=== PATIENT | female | born 1960 | race Hispanic/Latino ===

== ENCOUNTER 2018-12-20 13:12 | Outpatient (CLI) | payer OTHER ==
--- NOTE | 2018-12-20 14:15 | RAD ---
RADIOGRAPH LUMBAR SPINE 4 VIEWS: DATE: 12/20/18 HISTORY: 58-year-old female with chronic low back pain. TECHNIQUE: AP and 3 lateral views in flexion, extension, and neutral. FINDINGS: Five lumbar-type vertebrae. Vertebral body heights are maintained. Mild disc space narrowing at l4-5, perhaps slightly worse than on 10/06/16. No other interval change since then. Grade I anterolisthesi s of L4 on L5. Bilateral pedicle screws at L5 and S1. Metallic markers for interbody graft at the mod erately narrowed L5-S1 disc space. No instability between flexion and extension. Laminectomy defects at L4-5 and L5-S1. IMPRESSION: 1. Grade I spondylolisthesis at L3-4 without evidence of instability. 2. Status post laminectomy and posterior lumbar interbody fusion at L5-S1. 3. Degenerative disc disease at L4-5 and L5-S1. JN [] POS: CET
== END 2018-12-20 13:13 | disposition home or self-care (01) ==
LOC: RAD 13:12
PROVIDERS: ATTEND Nurse Practitioner Family
DX: M67.911 Unspecified disorder of synovium and tendon, right shoulder (principal); M43.16 Spondylolisthesis, lumbar region; M51.36 Other intervertebral disc degeneration, lumbar region; M51.37 Other intervertebral disc degeneration, lumbosacral region; Z98.890 Other specified postprocedural states; Z98.1 Arthrodesis status
CPT/HCPCS: 72120

== ENCOUNTER 2020-05-27 09:23 | Outpatient (CLI) | payer OTHER ==
--- NOTE | 2020-05-27 09:43 | RAD ---
LUMBAR SPINE 3 VIEWS: Date: 05/27/2020 HISTORY: Lumbar radicular pain, bilateral leg pain, prior surgery. COMPARISON: 12/20/2018. FINDINGS: Stable postoperative changes at L5-S1. Stable mild anterolisthesis of L5 on S1 without abnormal trans lation between flexion and extension. Stable narrowing of the L3-L4 and L4-L5 disc spaces from prior study. No significant new process. IMPRESSION: Stable spondylosis and postoperative changes. POS: AH
== END 2020-05-27 09:24 | disposition home or self-care (01) ==
LOC: TBSIIMAG 09:23
PROVIDERS: ATTEND Neurological Surgery
DX: M47.26 Other spondylosis with radiculopathy, lumbar region (principal); Z98.890 Other specified postprocedural states
CPT/HCPCS: 72100

== ENCOUNTER 2021-02-13 08:55 | Outpatient (CLI) | payer OTHER | END 2021-02-13 08:56 | disposition home or self-care (01) | LOC: TBSIIMAG 08:55 | PROVIDERS: ATTEND Neurological Surgery | DX: M54.5 Low back pain (principal); M99.83 Other biomechanical lesions of lumbar region; M47.816 Spondylosis without myelopathy or radiculopathy, lumbar region; M43.16 Spondylolisthesis, lumbar region | CPT/HCPCS: 72110 ==